=== PATIENT | male | born 1980 | race Caucasian/White ===

== ENCOUNTER 2024-02-02 10:15 | Emergency (ER) | payer BC, OTHER ==
--- OUTSIDE RECORDS SUMMARY | 2024-02-02 10:18 | XMS REPORT | Continuity of Care Document ---
Author Name Unknown Address [address] [facility] [address] [place] [address] [facility] thconnect Address [address] [facility] 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 Name Role Phone Sheela Attending Clinician Unavailable Venkat Echavarria Attending Clinician [phone] AZAEL TREJO Attending Clinician Unavailable ARCELIA BILL Attending Clinician Unavailable Sheela Admitting Clinician Unavailable Payers Payer Name Policy Type Policy Number Effective Date Expirati on Date Source [place] [id number] 2019 00:00:00 [place] [id number] 2019 00:00:00 Problems Condition Name Condition Details Condition Category Status Onset Date Resolution Date Last Treatment Date Treating Clinician Comments Source Chronic prostatiti s Chronic Prostatiti s Problem Active 09-21 00:00: 00 [facility] Allergies, Adverse Reactions, Alerts Allergy Name Allergy Type Status Severity Reaction(s) Onset Date Inactive Date Treating Clinician Comments Source NO KNOWN ALLERGIE S Drug Class Active [facility] Social History Smoking Status Start Date Stop Date Source Light Tobacco Smoker [facility] Medications Ordered Medication Name Filled Medication Name Start Date Stop Date Current Medication? Ordering Clinician Indication Dosage Frequency Signature (SIG) Comments Components Source Cipro 500 mg tablet Take 1 tablet every 12 hours by oral route. Cipro 500 mg tablet Take 1 tablet every 12 hours by oral route. No 1 Q12H Cipro 500 mg tablet Take 1 tablet every 12 hours by oral route. [facility] sulfamethox azole 800 mg-trimetho prim 160 mg tablet TAKE 1 TABLET EVERY 12 HOURS BY ORAL ROUTE. sulfamethox azole 800 mg-trimetho prim 160 mg tablet TAKE 1 TABLET EVERY 12 HOURS BY ORAL ROUTE. No sulfametho xazole 800 mg-trimeth oprim 160 mg tablet TAKE 1 TABLET EVERY 12 HOURS BY ORAL ROUTE. [facility] Bactrim DS 800 mg-160 mg tablet Take 1 tablet every 12 hours by oral route. Bactrim DS 800 mg-160 mg tablet Take 1 tablet every 12 hours by oral route. No 1 Q12H Bactrim DS 800 mg-160 mg tablet Take 1 tablet every 12 hours by oral route. [facility] Vital Signs Vital Name Observation Time Observation Value Comments S claudia Height 2021-02-15 00:00:00 68 [in_i] [facility] BMI (Body Mass Index) 2021-02-15 00:00:00 28.9 kg/m2 [facility] Weight 2021-02-15 00:00:00 190 [lb_av] [facility] BP Diastolic 2021-01-04 00:00:00 78 mm[Hg] [facility] Height 2021-01-04 00:00:00 68 [in_i] [facility] BMI (Body Mass Index) 2021-01-04 00:00:00 28.9 kg/m2 [facility] BP Systolic 2021-01-04 00:00:00 131 mm[Hg] [facility] Body Weight 2021-01-04 00:00:00 190 [lb_av] [facility] BP Diastolic 2020-09-21 00:00:00 88 mm[Hg] [facility] Height 2020-09-21 00:00:00 68 [in_i] [facility] BMI (Body Mass Index) 2020-09-21 00:00:00 29.2 kg/m2 [facility] BP Systolic 2020-09-21 00:00:00 130 mm[Hg] [facility] Body Weight 2020-09-21 00:00:00 192 [lb_av] [facility] BP Diastolic 2020-08-11 00:00:00 77 mm[Hg] [facility] Height 2020-08-11 00:00:00 68 [in_i] [facility] BMI (Body Mass Index) 2020-08-11 00:00:00 29.2 kg/m2 [facility] BP Systolic 2020-08-11 00:00:00 130 mm[Hg] [facility] Body Weight 2020-08-11 00:00:00 192 [lb_av] [facility] Plan of Care Planned Activity Planned Date Details Comments Source Diagnostic Test Pending 2021-02-15 00:00:00 urinalysis, dipstick [code = urinalysis, dipstick] [facility] Diagnostic Test Pending 2021-02-15 00:00:00 culture, urine + sensitivity [code = culture, urine + sensitivity] [facility] Encounters Start Date/Time End Date/Time Encounter Type Admission Type Attending [facility] Care Department Encounter ID Source 2021-03-12 01:59:00 2021-03-12 01:59:00 Outpatient Sheela [facility] [id number] [facility] 2021-02-23 09:21:00 2021-02-23 09:21:00 Outpatient Sheela [facility] [id number] [facility] 2021-02-16 10:02:00 2021-02-16 10:02:00 Outpatient Sheela [facility] [id number] [facility] 2021-02-15 03:08:00 2021-02-15 03:08:00 Outpatient Sheela [facility] [id number] [facility] 2021-02-15 00:00:00 2021-02-15 00:00:00 Outpatient Venkat Echavarria [facility] [id number] 2021-02-15 00:00:00 2021-02-15 00:00:00 Venkat Echavarria MD: [id number] [address], [place] [address] , Ph. [facility] [place] [facility] [id number] [facility] 2021-02-10 01:04:00 2021-02-10 01:04:00 Outpatient Schiff[facility] U [id number] [facility] 2021-01-24 09:09:00 2021-01-24 09:09:00 Outpatient Schiffman_Z [facility] [id number] [facility] 2021-01-20 11:02:00 2021-01-20 11:02:00 Outpatient [facility] U [id number] [facility] 2021-01-04 03:13:00 2021-01-04 03:13:00 Outpatient Sch[facility]man_Z [facility]U [id number] [facility] 2021-01-04 00:00:00 2021-01-04 00:00:00 Outpatient Venkat Echavarria U U [id number] 2021-01-04 00:00:00 2021-01-04 00:00:00 Venkat Echavarria MD: [id number] [address], [place] [address] , [facility] [place] - [id number] [facility] 2021-01-03 05:47:00 2021-01-03 05:47:00 Outpatient Schiffman_Z [facility] U [id number] [facility] 2020-09-22 11:32:00 2020-09-22 11:32:00 Outpatient Schiffman_Z [facility] [id number] [facility] 2020-09-21 03:17:00 2020-09-21 03:17:00 Outpatient Schiffman_Z [facility] [id number] [facility] 2020-09-21 00:00:00 2020-09-21 00:00:00 Outpatient Venkat Echavarria U U [id number] 2020-09-21 00:00:00 2020-09-21 00:00:00 Venkat Echavarria MD: [id number] [address] , [facility]. [facility] [id number] [facility] 2020-09-10 12:36:00 2020-09-10 12:36:00 Outpatient Schiffman_Z [facility] [id number] [facility] 2020-08-12 02:25:00 2020-08-12 02:25:00 Outpatient Schiffman_Z U [facility] [id number] [facility] 2020-08-11 05:39:00 2020-08-11 05:39:00 Outpatient Schiffman_Z U [facility] [id number] [facility] 2020-08-11 00:00:00 2020-08-11 00:00:00 Outpatient Venkat Echavarria [facility] [id number] 2020-08-11 00:00:00 2020-08-11 00:00:00 Venkat Echavarria MD: [id number] [address] , Ph. [facility] [id number] [facility] 2020-08-10 03:43:00 2020-08-10 03:43:00 Outpatient Schiffman_Z [facility] [id number] [facility] 2019-08-26 13:00:00 2019-08-26 13:00:00 Outpatient AZAEL LAZO [facility] [id number] [facility] 2019-08-10 12:20:00 2019-08-10 12:20:00 Outpatient ARCELIA WASHINGTON [facility] [id number] [facility]
--- NOTE | 2024-02-02 11:58 | RAD REPORT ---
EXAMINATION: US RIGHT LOWER EXTREMITY VENOUS DOPPLER CLINICAL INDICATION: [facility] MAIN leg Pain;Swelling Bed Name: IW1 Y TECHNIQUE: Complete bilateral duplex sonography of the RIGHT lower extremity veins was performed. The examination included compression for vein patency, color Doppler imaging and flow augmentation in response to distal compression of the distal external iliac, common femoral, femoral, popliteal, tibi al, and great and small saphenous veins. COMPARISON: No prior exam. FINDINGS: Duplex sonography testing of the veins of the LEFT lower extremity was performed. Color flow imaging shows all veins to be compressible with [id number] color filling. Pulsatile and phasic flow is present within all lower extremity deep and superficial veins examined. IMPRESSION: No evidence of deep venous thrombosis.
--- NOTE | 2024-02-02 12:27 | ER ---
Nurse's Notes [facility] Name: Luis Queen Age: 43 yrs Sex: Male : 1980 Arrival Date: 02/02/2024 Time: 10:15 Bed 12 Private MD: Diagnosis: Pain in right ankle and joints of right foot Presentation: 02/01 10:35 Chief complaint: Patient states: R foot pain x 4 days. No known injury. Pt reports he ss was seen at urgent care yesterday and had XRAYS which did not show a fracture, but was told it could be a blood clot, and wants to make sure it is not a DVT. Coronavirus screen: Client denies travel out of the [place] in the last 14 days. Ebola Screen: Patient denies exposure to infectious person. Patient denies travel to an Ebola-affected area in the 21 days before illness onset. Initial Sepsis Screen: Does the patient meet any 2 criteria? No. Patient's initial sepsis screen is negative. Does the patient have a suspected source of infection? No. Patient's initial sepsis screen is negative. Risk Assessment: Do you want to hurt yourself or someone else? Patient reports no desire to harm self or others. Onset of symptoms was January 29, 2024. 10:35 Method Of Arrival: Ambulatory ss 10:35 Acuity: JENNIFER 4 ss Historical: - Allergies: 10:39 No Known Allergies; ss - Home Meds: 10:39 None [Active]; ss - PMHx: 10:39 None; ss - PSHx: 10:39 Cholecystectomy; ss - Infectious Disease History:: Denies. - Social history:: Smoking status: Patient reports the use of cigarette tobacco products, denies chronic smoking, but will smoke occasionally, Reported history of juuling and/or vaping. Vital Signs: 10:35 BP 131 / 108; Pulse 97; Resp 16; Temp 98.2(O); Pulse Ox 100% on R/A; Weight 93.89 kg; ss Height 5 ft. 8 in. ; Pain 1/10; 10:35 Body Mass Index 31.47 (93.89 kg, 172.72 cm) 10:35 Pain Scale: Adult ss ED Course: 10:19 Patient arrived in ED. im 10:19 Yocasta Viera PA-C is PHCP. sb4 10:19 Dhiraj Pena MD is Attending Physician. sb4 10:39 Triage completed. ss 10:39 Arm band placed on left wrist. ss 11:51 Extremity Venous Uni Ltd US In Process Unspecified. EDMS 12:25 Olivia Fernandez, RN is Primary Nurse. ss 12:26 Shahab Sterling MD is Referral Physician. sb4 12:37 No provider procedures requiring assistance completed. Patient did not have IV access ss during this emergency room visit. Administered Medications: No medications were administered Outcome: 12:26 Discharge ordered by . sb4 12:37 Discharged to home ambulatory, ss 12:37 Condition: good 12:37 Discharge instructions given to patient, Instructed on discharge instructions, follow up and referral plans. Demonstrated understanding of instructions, follow-up care, 12:37 Patient left the ED. ss Signatures: Dispatcher [employer] EDIA Olivia Fernandez, RN RN Yocasta Stallworth PA-C PA-C sb4 Dalila Viera
--- NOTE | 2024-02-02 12:27 | EDPHYS ---
Physician Documentation [facility] Name: Luis Queen Age: 43 yrs Sex: Male : 1980 Arrival Date: 02/02/2024 Time: 10:15 Bed 12 Private MD: ED Physician Dhiraj Pena HPI: 02/01 10:47 This 43 yrs old Male presents to ER via Ambulatory with complaints of Foot Pain - sb4 Right, ankle pain right. 10:47 right foot/ankle pain x 4 days. no known injury. states he has been at home walking sb4 around barefoot for the past few days, which is out of his routine. he states he went to urgent care yesterday, had negative xrays. came to ED because he is concerned about a blood clot or "tendon" issue. has a follow appointment with ortho in 2 days. Historical: - Allergies: 10:39 No Known Allergies; ss - Home Meds: 10:39 None [Active]; ss - PMHx: 10:39 None; ss - PSHx: 10:39 Cholecystectomy; ss - Infectious Disease History:: Denies. - Social history:: Smoking status: Patient reports the use of cigarette tobacco products, denies chronic smoking, but will smoke occasionally, Reported history of juuling and/or vaping. ROS: 10:47 Constitutional: Negative for fever, chills, and weight loss, sb4 10:47 MS/extremity: Positive for erythema, pain, swelling, of the dorsum of right foot, 10:47 All other systems are negative, Exam: 12:19 Constitutional: This is a well developed, well nourished patient who is awake, alert, sb4 and in no acute distress. Head/Face: Normocephalic, atraumatic. Eyes: Extra-ocular motions intact. Periorbital areas with no swelling, redness, or edema. ENT: Mucous membranes moist. Respiratory: No increased work of breathing, no retractions or nasal flaring. 12:19 Musculoskeletal/extremity: mild swelling and erythema dorsum of right foot. Vital Signs: 10:35 BP 131 / 108; Pulse 97; Resp 16; Temp 98.2(O); Pulse Ox 100% on R/A; Weight 93.89 kg; ss Height 5 ft. 8 in. ; Pain 1/10; 10:35 Body Mass Index 31.47 (93.89 kg, 172.72 cm) ss 10:35 Pain Scale: Adult ss MDM: 10:38 Medical Screening Exam initiated sb4 12:20 Data reviewed: vital signs, nurses notes, radiologic studies, and as a result, I will sb4 discharge patient. Counseling: I had a detailed discussion with the patient and/or guardian regarding the historical points, exam findings, and any diagnostic results supporting the discharge/admit diagnosis, radiology results, to return to the emergency department if symptoms worsen or persist or if there are any questions or concerns that arise at home. 02/01 10:39 Order name: Extremity Venous Uni Ltd US; Complete Time: 12:04 sb4 Administered Medications: No medications were administered Disposition: : Co-signature as Attending Physician, Dhiraj Pena MD I agree with the assessment and elvis plan of care. Disposition Summary: 02/02/24 12:26 Discharge Ordered Notes: Location: Home sb4 Problem: new sb4 Symptoms: are unchanged sb4 Condition: Stable sb4 Diagnosis - Pain in right ankle and joints of right foot sb4 Followup: sb4 - With: Shahab Sterling MD - When: As needed - Reason: Further diagnostic work-up, Recheck today's complaints, Re-evaluation by your physician Discharge Instructions: - Discharge Summary Sheet sb4 - Musculoskeletal Pain sb4 - Pain Without a Known Cause sb4 - Ankle Pain sb4 Forms: - Patient Portal Instructions sb4 - Leadership Thank You Letter sb4 Signatures: Dispatcher [employer] Dhiraj Olea MD MD cha Blanchard, Shelby, RN RN Yocasta Stallworth PA-C PA-C sb4
[2024-02-02 12:42] VITALS: BP 131/108; TEMP 98.2; O2SAT 100
== END 2024-02-02 12:37 | disposition home or self-care (01) ==
LOC: ER 10:15
DX: M25.571 Pain in right ankle and joints of right foot (principal)
CPT/HCPCS: 93971; 99282